=== PATIENT | female | born 1955 | race Caucasian/White ===

== ENCOUNTER → 2024-10-27 14:32 | Outpatient (REF) | payer MEDICARE, OTHER, SELFPAY | LOC: WDC 14:32 | PROVIDERS: ATTENDING PHYSICIAN Obstetrics & Gynecology Gynecology; FAMILY PHYSICIAN Family Medicine | DX: Z78.0 Asymptomatic menopausal state (principal); Z12.31 Encounter for screening mammogram for malignant neoplasm of breast | CPT/HCPCS: 77063; 77067; 77080 ==

== ENCOUNTER 2025-01-09 15:09 | Emergency (ER) | payer MEDICARE, OTHER, SELFPAY ==
[2025-01-09 15:25] VITALS: BP 158/79
[2025-01-09 16:36] VITALS: BP 165/77
--- NOTE | 2025-01-09 16:48 | ED.GENMED ---
History of Present Illness
General
Chief Complaint: Chest Pain
Source: patient
Exam Limitations: none
Time Seen by Provider: 01/09/25 15:38
Nursing documentation reviewed up to this point in time: agreed with
History of Present Illness
History of Present Illness:
69-year-old female presenting to the emergency department today with concerns of chest heaviness and shortness of breath over the past 2 weeks. Seems to be somewhat random in presentation. Not specifically with exertion did do significant exercise
over the past few days without significant symptoms but today had symptoms with a light walk. She claims that the heaviness and shortness of breath last for a few minutes. Denies associated nausea vomiting fever denies known history of lung
disease, smoking history or heart disease.
Past History
Past History
ED Past Medical History: None; Negative IDDM
Social History
Tobacco: Non-smoker
Alcohol: None
Drug: None
Living: with family
Employment: Employed
Family History
Family History: Other
Review of Systems
Review of Systems
Allergies reviewed?: Yes
All Other Systems: ROS reviewed and negative except as documented in HPI and ROS
Phy Exam
Physical Exam
Physical Exam:
GENERAL: Alert , in no apparent distress
EYE: pupils equal and reactive
NECK: Supple, no significant adenopathy.
ENT: o/p clr, mmm.
CARDIAC: Regular rate and rhythm .
LUNGS: Clear breath sounds bilaterally, no acute respiratory distress, no wheezes/rales/rhonchi
ABDOMEN: Soft, without focal tenderness, no r/g, no cvat
NEUROLOGICAL: Alert and oriented, no focal neuro deficits
SKIN: Warm and dry, skin intact.
MUSCULOSKELETAL: No edema, well perfused.
PSYCH: Normal and appropriate interaction.
Scores
Heart Score for Chest Pain Patients
STEMI patient?: No
History: Slightly or Non-Suspicious
ECG: Normal
Age: >/= 65 years
Risk Factors: No Risk Factors
Troponin: </= Normal Limit
Heart Score for Chest Pain Patients: 2
Heart Score Risk: 2.5% MACE over next 6 weeks
Course
Orders/Labs/Results
Orders:
Orders
01/09/25 15:13
Electrocardiogram (*1) Urgent
Reason for Study: Chest Pain
EKG- Treatment ONCE
01/09/25 16:30
CR Chest - 2 Views Urgent
Comment:
Reason For Exam: cp
01/09/25 16:45
Complete Blood Count/With Diff Urgent
Comprehensive Metabolic Panel Urgent
D-Dimer Urgent
Magnesium Urgent
NT-proBNP Urgent
Troponin I Urgent
Abnormal Lab Results
01/09/25
16:45
RBC 4.02 L 10^6/uL
(4.20-5.40)
MCH 32.8 H pg
(27.0-31.0)
BUN 21 H mg/dl
(7-17)
01/09/25 16:45
01/09/25 16:45
Vital Signs
Initial and Last Documented VS:
Initial Vital Signs
Temp Pulse Resp BP Pulse Ox
98.1 F 61 16 158/79 99
01/09/25 15:25 01/09/25 15:25 01/09/25 15:25 01/09/25 15:25 01/09/25 15:25
Last Documented Vital Signs
Temp Pulse Resp BP Pulse Ox
98.1 F 61 16 158/79 99
01/09/25 15:25 01/09/25 15:25 01/09/25 15:25 01/09/25 15:25 01/09/25 15:25
MDM/Problems Addressed
MDM/Problems Addressed:
69-year-old female presenting to the emergency department today with concerns of intermittent chest heaviness and shortness of breath over the past 2 weeks. Asymptomatic here blood pressure slightly elevated but otherwise vital signs are normal.
Labs unremarkable troponin negative D-dimer negative very low likelihood for PE chest x-ray no acute abnormalities patient without any signs of emergent process causing symptoms advised for close outpatient follow-up return precautions given.
*Critical Care Note
Total Time (30-74mins, 75-104mins- exclusive of procedures): Not Applicable
ED Attending Note
-
Portions of this chart may have been created with voice recognition software.� Occasional wrong word or��sound alike� substitutions may have occurred due to the inherent limitations of voice recognition software.
Discharge Plan
Departure
Patient Disposition: Home (Routine Discharge)
Date of Disposition: 01/09/25
Time of Disposition: 18:26
Patient with high blood pressure during this ER visit?: No
Condition: Good
Covid-19: Not Applicable
Discharge Problem:
Chest pain
Instructions: Chest Pain PCP Follow Up
Referrals:
David Ortez, DO [Family Provider] -
Activity Restrictions/Additional Instructions:
You came to the emergency department today with concerns of chest discomfort shortness of breath. Here your reassuring assessment. Please follow closely for reassessment and potential further evaluation if symptoms are ongoing. Return for any
worsening, new or concerning symptoms.
Interventions
Interventions:
*Risk Screen - Suicide Last Done: 01/09/25 15:27
*Neglect/Abuse Screening Last Done: 01/09/25 15:27
Discharge Date and Time
Print Language: POLISH
[2025-01-09 16:58] LABS: % Basophils 1.1 % (0-2); % Eosinophils 0.7 % (0-6); % Immature Granulocytes 0.2 % (0-0.5); % Lymphocytes 25.9 % (20.5-51.1); % Monocytes 7.7 % (1.7-9.3); % Neutrophils 64.4 % (42.2-75.2); Absolute Basophils 0.1 10^3/uL (0-0.2); Absolute Lymphocytes 1.5 10^3/uL (1.2-3.4); Absolute Monocytes 0.4 10^3/uL (0.1-0.6); Absolute Neutrophils 3.7 10^3/uL (1.4-6.5); Hemoglobin 13.2 g/dL (12.0-16.0); Mean Corp Hgb Conc. 34.7 g/dL (33.0-37.0); Mean Corpuscular Hgb 32.8 pg (27.0-31.0); Mean Corpuscular Volume 94.5 fL (81.0-99.0); Mean Platelet Volume 9.4 fL (7.4-10.4); Nucleated Red Blood Cells % 0 %; Platelet Count 207 10^3/uL (130-400); Red Blood Cell Count 4.02 10^6/uL (4.20-5.40); Red Cell Dist. Width 12.4 % (11.5-14.5); White Blood Cell Count 5.7 10^3/uL (4.8-10.8)
[2025-01-09 17:12] LABS: ALT (SGPT) 16 U/L (0-35); AST (SGOT) 25 U/L (14-36); Albumin 4.4 g/dl (3.5-5.0); Alkaline Phosphatase 49 U/L (38-126); Blood Urea Nitrogen 21 mg/dl (7-17); Calcium 9.6 mg/dl (8.4-10.2); Carbon Dioxide 26 mmol/L (22-30); Chloride 104 mmol/L (98-107); Glucose 87 mg/dl (70-99); Magnesium 2.2 mg/dl (1.6-2.3); Potassium 4.7 mmol/L (3.5-5.1); Sodium 137 mmol/L (135-145); Total Bilirubin 0.4 mg/dl (0.2-1.3); Total Protein 7.1 g/dl (6.3-8.2); eGFR > 60.00
[2025-01-09 17:13] LABS: D-Dimer < 0.27 ug/mlFEU (0.00-0.50)
[2025-01-09 17:26] LABS: NT-proBNP 89.4 pg/ml; Troponin I < 0.012 ng/ml
== END 2025-01-09 19:09 | disposition home or self-care (01) ==
LOC: EMR 15:09
PROVIDERS: Physician Assistant; EMERGENCY PHYSICIAN Student in an Organized Health Care Education/Training Program; FAMILY PHYSICIAN Family Medicine
DX: R07.89 Other chest pain (principal); R06.02 Shortness of breath
CPT/HCPCS: 99285; 71046; 80053; 83735; 83880; 84484; 85025; 85379; 93005

== ENCOUNTER → 2025-04-09 13:45 | Outpatient (REF) | payer MEDICARE, OTHER, SELFPAY | LOC: WDC 13:45 | PROVIDERS: ATTENDING PHYSICIAN Family Medicine | DX: R92.333 Mammographic heterogeneous density, bilateral breasts (principal) | CPT/HCPCS: 76641 ==

== ENCOUNTER → 2025-10-28 14:49 | Outpatient (REF) | payer MEDICARE, OTHER, SELFPAY | LOC: WDC 14:49 | PROVIDERS: ATTENDING PHYSICIAN Family Medicine | DX: Z12.31 Encounter for screening mammogram for malignant neoplasm of breast (principal) | CPT/HCPCS: 77063; 77067 ==